=== PATIENT | female | born 1965 | race American Indian/Alaskan Native ===

== ENCOUNTER 2020-10-16 08:19 | Outpatient (CLI) | payer OTHER | END 2020-10-16 21:41 | disposition home or self-care (01) | LOC: US 08:19 | PROVIDERS: ATTEND Nurse Practitioner Family | DX: N28.89 Other specified disorders of kidney and ureter (principal); R10.2 Pelvic and perineal pain ==

== ENCOUNTER 2021-08-14 10:04 | Outpatient (CLI) | payer OTHER | END 2021-08-14 18:50 | disposition home or self-care (01) | LOC: MAMMO 10:04 | PROVIDERS: ATTEND Nurse Practitioner Family | DX: Z12.31 Encounter for screening mammogram for malignant neoplasm of breast (principal) ==